=== PATIENT | female | born 1945 | race Caucasian/White ===

== ENCOUNTER → 2017-01-15 | Outpatient (CLI) | payer MEDICARE, MEDICAID ==
--- NOTE | 2017-01-15 16:39 | RADIOLOGY REPORT (SQ) ---
EXAM DESCRIPTION: SHOULDER RIGHT 2 OR MORE VIEWS COMPLETED DATE/TIME: 01/15/2017 3:04 pm REASON FOR STUDY: ANTERIOR DISLOCATION OF RIGHT HUMERUS, SEQUELA S43.014S ANTERIOR DISLOCATION OF R IGHT HUMERUS, SEQUELA COMPARISON: None. NUMBER OF VIEWS: Three views. TECHNIQUE: Internal rotation, external rotation, and Y view images acquired of the right shoulder. LIMITATIONS: None. FINDINGS: MINERALIZATION: Normal. BONES: No acute fracture or dislocation. No worrisome bone lesions. JOINTS: There is significant degenerative joint disease in the glenohumeral joint with marked narrowi ng of the joint space and subchondral sclerosis in the humeral head and glenoid and prominent margina l osteophyte inferiorly on humerus. VISUALIZED LUNGS AND RIBS: No pneumothorax. No rib fracture. SOFT TISSUES: No radiopaque foreign body. OTHER: No other significant finding. IMPRESSION: Glenohumeral degenerative joint disease. TECHNICAL DOCUMENTATION: JOB ID: [id number] [employer]- All Rights Reserved
== END ==
LOC: OD 14:28
PROVIDERS: ATTEND Internal Medicine
DX: S43.014S Anterior dislocation of right humerus, sequela (principal)

== ENCOUNTER 2019-01-14 12:31 | Observation (INO) | payer MEDICARE, MEDICAID ==
[~2019-01-14 12:31] MED LIST: PHENYLEPHRINE HCL INJ/PF 10 MG/1 ML SDV ONE; SUCCINYLCHOLINE CHLORIDE INJ 200 MG/10 ML VIAL ONE
--- NOTE | 2019-01-14 12:56 | ER Document Report ---
ED Medical Screen (RME) - General Stated Complaint: SPITTING UP BLOOD Time Seen by Provider: 01/14/19 12:50 Primary Care Provider: GISELLE CHRISTIANSON MD [Primary Care Provider] - Follow up as needed Information source: Patient Notes: Patient states that she was eating a hamburger and it felt as though it got stuck. Patient states she choked a little bit and coughed and since then has been spitting up blood. Patient feels as though the food is stuck in her throat. Patient unable to swallow her saliva. Patient denies any previous problems with food getting lodged in her throat. Patient denies taking any anticoagulants. Only significant history is seizures. I have greeted and performed a rapid initial assessment of this patient. A comprehensive ED assessment and evaluation of the patient, analysis of test results and completion of the medical decision making process will be conducted by additional ED providers. TRAVEL OUTSIDE OF THE [place] IN LAST 30 DAYS: No - Related Data Allergies/Adverse Reactions: No Known Drug Allergies Allergy (Verified 11/23/12 22:02) Past Medical History - Past Medical History Cardiac Medical History: Reports: Hx Hypertension Pulmonary Medical History: Denies: Hx Tuberculosis Neurological Medical History: Reports: Hx Seizures Endocrine Medical History: Reports: Hx Hypothyroidism. Denies: Hx Graves' Disease, Hx Hyperthyroidism Renal/ Medical History: Denies: Hx End Stage Renal Disease, Hx Kidney Stones, Hx Ovarian Cysts, Hx Peritoneal Dialysis, Hx Pelvic Inflammatory Disease Malignancy Medical History: Denies: Hx Breast Cancer, Hx Cervical Cancer, Hx Leukemia, Hx Ovarian Cancer Musculoskeltal Medical History: Reports Hx Arthritis, Denies Hx Systemic Lupus Erythematosus Skin Medical History: Reports Hx MRSA Infectious Medical History: Denies: Hx HIV Past Surgical History: Denies: Hx Pacemaker - Immunizations Hx Diphtheria, Pertussis, Tetanus Vaccination: No - unknown Physical Exam - General General appearance: Alert, Anxious In distress: Moderate Notes: Patient continually spitting up small amounts of blood to emesis bag, vital signs stable, Dr. Peñaloza to bedside for examination. Doctor's Discharge - Discharge Referrals: GISELLE CHRISTIANSON MD [Primary Care Provider] - Follow up as needed
[2019-01-14] MEDS ORDERED: TRANEXAMIC ACID INJ/PF 1,000 MG/10 ML SDV IV ONE (13:12)
[2019-01-14 13:30] LABS: INTERNATIONAL RATION (INR) 0.96; PROTHROMBIN TIME 12.8 SEC (11.4-15.4)
[2019-01-14 13:31] LABS: PARTIAL THROMBOPLASTIN TIME 25.8 SEC (23.5-35.8)
--- NOTE | 2019-01-14 13:43 | RADIOLOGY REPORT (SQ) ---
EXAM DESCRIPTION: CHEST SINGLE VIEW COMPLETED DATE/TIME: 01/14/2019 1:34 pm REASON FOR STUDY: vomiting blood, food bolus stuck COMPARISON: 06/17/2012 NUMBER OF VIEWS: One view. TECHNIQUE: Single frontal radiographic view of the chest acquired. LIMITATIONS: None. FINDINGS: LUNGS AND PLEURA: No opacities, masses or pneumothorax. No pleural effusion. MEDIASTINUM AND HILAR STRUCTURES: No masses. Contour normal. HEART AND VASCULAR STRUCTURES: Heart size is probably unchanged. Opacity in the right cardiophrenic angle is consistent with prominent cardiophrenic angle fat pad demonstrated on prior CTA chest. BONES: No acute findings. HARDWARE: None in the chest. OTHER: No other significant finding. IMPRESSION: NO SIGNIFICANT RADIOGRAPHIC FINDING IN THE CHEST. TECHNICAL DOCUMENTATION: JOB ID: [id number] [employer]- All Rights Reserved Reading location - IP/workstation name: [email or web address]
[2019-01-14 14:02] LABS: ABSOLUTE BASOPHILS # (AUTO) 0.1 10^3/uL (0.0-0.2); ABSOLUTE EOSINOPHILS # (AUTO) 0.1 10^3/uL (0.0-0.6); ABSOLUTE LYMPHOCYTES (AUTO) 1.2 10^3/uL (0.5-4.7); ABSOLUTE MONOCYTES (AUTO) 0.7 10^3/uL (0.1-1.4); ABSOLUTE NEUT (AUTO) 4.4 10^3/uL (1.7-8.2); BASOPHILS % (AUTO) 1.4 % (0-2); EOSINOPHILS % (AUTO) 1.7 % (0-6); HEMATOCRIT 36.2 % (36.0-47.0); HEMOGLOBIN 12.5 g/dL (12.0-15.5); LYMPHOCYTES % (AUTO) 18.5 % (13-45); MEAN CORPUSCULAR HEMOGLOBIN 31.4 pg (27.0-33.4); MEAN CORPUSCULAR HGB CONC 34.6 g/dL (32.0-36.0); MEAN CORPUSCULAR VOLUME 91 fl (80-97); PLATELET COUNT 261 10^3/uL (150-450); RED BLOOD COUNT 3.99 10^6/uL (3.72-5.28); RED CELL DISTRIBUTION WIDTH 13.4 % (11.5-14.0); SEGMENTED NEUTROPHILS % (AUTO) 67.4 % (42-78); TOTAL CELLS COUNTED % (AUTO) 100 %; WHITE BLOOD COUNT 6.5 10^3/uL (4.0-10.5)
--- NOTE | 2019-01-14 14:22 | ER Document Report ---
ED ENT - General Chief Complaint: Choked/Choking Stated Complaint: SPITTING UP BLOOD Time Seen by Provider: 01/14/19 12:50 Primary Care Provider: GISELLE CHRISTIANSON MD [Primary Care Provider] - Follow up as needed Mode of Arrival: Medic Information source: Patient TRAVEL OUTSIDE OF THE [place] IN LAST 30 DAYS: No - HPI Notes: Patient presents complaining of throat pain, vomiting blood, and a sensation of something being stuck in her throat. Patient states that she was at a [employer] eating a hamburger when she had the sensation of the hamburger being stuck in her throat. She states she then began to have some gagging and began to spit up blood. She states she feels slightly short of breath as well. She is also had trouble swallowing her own sputum. She has not been lightheaded or dizzy. No previous history. No history of bleeding disorders or liver trouble. He states she does not take any blood thinners. The symptoms have been moderate to severe. They have been constant. Nothing makes them better or worse. They have been located in her neck. There is no radiation of the symptoms. - Related Data Allergies/Adverse Reactions: No Known Drug Allergies Allergy (Verified 01/14/19 14:11) Past Medical History - General Information source: Patient - Social History Smoking Status: Never Smoker Frequency of alcohol use: None Drug Abuse: None Family History: Reviewed & Not Pertinent Patient has suicidal ideation: No Patient has homicidal ideation: No - Past Medical History Cardiac Medical History: Reports: Hx Hypertension Pulmonary Medical History: Denies: Hx Tuberculosis Neurological Medical History: Reports: Hx Seizures Endocrine Medical History: Reports: Hx Hypothyroidism. Denies: Hx Graves' Disea se, Hx Hyperthyroidism Renal/ Medical History: Denies: Hx End Stage Renal Disease, Hx Kidney Stones, Hx Ovarian Cysts, Hx Peritoneal Dialysis, Hx Pelvic Inflammatory Disease Malignancy Medical History: Denies: Hx Breast Cancer, Hx Cervical Cancer, Hx Leukemia, Hx Ovarian Cancer Musculoskeletal Medical History: Reports Hx Arthritis, Denies Hx Systemic Lupus Erythematosus Skin Medical History: Reports Hx MRSA Infectious Medical History: Denies: Hx HIV Past Surgical History: Denies: Hx Pacemaker - Immunizations Hx Diphtheria, Pertussis, Tetanus Vaccination: No - unknown Review of Systems - Review of Systems Constitutional: denies: Chills, Fever Cardiovascular: denies: Chest pain, Palpitations Respiratory: Cough, Short of breath Gastrointestinal: Nausea. denies: Abdominal pain -: Yes All other systems reviewed and negative Physical Exam - Vital signs Vitals: Resp BP 15 160/62 H 01/14/19 12:40 01/14/19 12:40 Interpretation: Hypertensive - General General appearance: Appears well, Alert In distress: Moderate - HEENT Head: Normocephalic, Atraumatic Eyes: Normal Pupils: PERRL Neck: Normal - Respiratory Respiratory status: No respiratory distress Chest status: Nontender Breath sounds: Decreased air movement - bilat Chest palpation: Normal - Cardiovascular Rhythm: Regular Heart sounds: Normal auscultation Murmur: No - Abdominal Inspection: Normal Distension: No distension Bowel sounds: Normal Tenderness: Nontender Organomegaly: No organomegaly - Back Back: Normal, Nontender - Extremities General upper extremity: Normal inspection, Nontender, Normal color, Normal ROM, Normal temperature General lower extremity: Normal inspection, Nontender, Normal color, Normal ROM, Normal temperature, Normal weight bearing. No: Philip's sign - Neurological Neuro grossly intact: Yes Cognition: Normal Orientation: AAOx4 Brent Coma Scale Eye Opening: Spontaneous Brent Coma Scale Verbal: Oriented [place] Coma Scale Motor: Obeys Commands Brent Coma Scale Total: 15 Speech: Normal Motor strength normal: LUE, RUE, LLE, RLE Sensory: Normal - Psychological Associated symptoms: Normal affect, Normal mood - Skin Skin Temperature: Warm Skin Moisture: Dry Skin Color: Normal Course - Re-evaluation Re-evalutation: 01/14/19 14:21 Patient arrives stating that she feels there is something stuck in her throat. She is actively spitting blood into a bag. She has approximately 4 to 500 mL of bloody sputum and an emesis bag that she has with her. She is not in any respiratory distress however. She is able to speak in complete sentences. She is nontoxic-appearing with relatively stable vitals. Patient was treated here with trans-anemic acid intravenously. She has also coughed up a large clot. After the trans-anemic acid and coughing up the clot she states she feels better. She feels like she can breathe better. The amount of bloody sputum that she is producing is significantly less. The surgeon has seen the patient here in the emergency department and will take the patient to the operating room. 01/14/19 14:24 - Vital Signs Vital signs: Temp Pulse Resp BP Pulse Ox 98.3 F 87 16 158/66 H 98 01/14/19 13:09 01/14/19 13:09 01/14/19 14:01 01/14/19 14:01 01/14/19 14:01 - Laboratory Result Diagrams: 01/14/19 13:45 01/14/19 12:50 - Diagnostic Test Radiology reviewed: Image reviewed, Reports reviewed - EKG Interpretation by Me EKG shows normal: Sinus rhythm Rate: Normal - 81 Rhythm: NSR Voltage: Decreased voltage Discharge - Discharge Clinical Impression: Upper GI hemorrhage Impacted esophageal foreign body Qualifiers: Encounter type: initial encounter Qualified Code(s): T18.108A - Unspecified foreign body in esophagus causing other injury, initial encounter Condition: Serious Disposition: ADMITTED INPATIENT Admitting Provider: Surgicalist - [facility] Admitted: OR Referrals: GISELLE CHRISTIANSON MD [Primary Care Provider] - Follow up as needed
[2019-01-14 14:31] LABS: ALBUMIN 4.3 g/dL (3.5-5.0); ALKALINE PHOSPHATASE 192 U/L (38-126); ANION GAP 10 (5-19); ASPARTATE AMINO TRANSFERASE 25 U/L (14-36); BILIRUBIN,DIRECT 0.2 mg/dL (0.0-0.4); BILIRUBIN,TOTAL 0.3 mg/dL (0.2-1.3); BLOOD UREA NITROGEN 17 mg/dL (7-20); CALCIUM 9.3 mg/dL (8.4-10.2); CARBON DIOXIDE 27 mmol/L (22-30); CHLORIDE 102 mmol/L (98-107); GLUCOSE 102 mg/dL (75-110); POTASSIUM 4.2 mmol/L (3.6-5.0); TOTAL PROTEIN 7.8 g/dL (6.3-8.2)
[2019-01-14] MEDS ORDERED: LIDOCAINE 2% INJ-PF (20 MG/ML) 10 ML AMPUL ONE (15:05)
[2019-01-14] MEDS ORDERED: MIDAZOLAM 2 MG/2 ML INJ ONE (15:05)
[2019-01-14] MEDS ORDERED: FENTANYL CITRATE INJ/PF 100 MCG/2 ML AMPUL ONE (15:05)
[2019-01-14] MEDS ORDERED: PROPOFOL INJ 200 MG/20 ML VIAL IV ONE (15:06)
[2019-01-14] MEDS ORDERED: EPINEPHRINE INJ 1 MG/10 ML DISP.SYRIN ONE (15:06)
[2019-01-14] MEDS ORDERED: FENTANYL CITRATE INJ/PF 100 MCG/2 ML AMPUL IV PRN ×3 (15:26)
[2019-01-14] MEDS ORDERED: MEPERIDINE HCL/PF INJ 25 MG/1 ML DISP.SYRIN IV PRN (15:26)
[2019-01-14] MEDS ORDERED: PROMETHAZINE HCL INJ 25 MG/1 ML VIAL IV PRN (15:26)
[2019-01-14] MEDS ORDERED: DIPHENHYDRAMINE HCL 50 MG/ML VIAL IV PRN (15:26)
[2019-01-14] MEDS ORDERED: ONDANSETRON HCL INJ/PF 4 MG/2 ML SDV IV PRN (15:26)
--- NOTE | 2019-01-14 15:46 | PDOC CONSULTATION ---
Consultation Consult Date: 01/14/19 Attending physician:: DANIEL LEMOS Provider Consulted: SALIMA GAGNON Consult reason:: Medical comanagement History of Present Illness Admission Date/PCP: 01/14/19 14:26 GISELLE CHRISTIANSON Patient complains of: Vomiting blood History of Present Illness: LAINE DEWITT is a 73 year old female with a history of hypothyroidism, seizure disorder, hypertension who presents to the hospital complaining of coughing up blood. Patient was eating a burger today went up piece of the burger got stuck in her throat. She states she was able to cough up some of it. However shortly after she started coughing up bloody sputum. EMS was subsequently called which brought patient to the hospital. Patient has been hemodynamically stable. In the emergency department patient was evaluated by surgery and was planned for th e OR for further evaluation. Consulted by surgery for evaluation of patient's chronic medical conditions for medical comanagement. During my examination patient completes of pain in the chest in the midsternal region which began after the food impaction. Patient denies any history of heart disease. States that she rarely gets heartburns. Patient admits to history of seizure per patient's daughter at bedside confirms that she has not had a seizure in over 3 years. She takes her phenytoin and Keppra diligently. Patient also takes losartan for hypertension which she took this morning. Patient denies any abdominal pain any dizziness trouble breathing fever chills swelling in the extremities. Past Medical History Medical History: Other Cardiac Medical History: Reports: Hypertension Pulmonary Medical History: Denies: Tuberculosis Neurological Medical History: Reports: Seizures Endocrine Medical History: Reports: Hypothyroidism Denies: Hyperthyroidism Renal/ Medical History: Denies: End Stage Renal Disease Malignancy Medical History: Denies: Breast Cancer, Cervical Cancer, Leukemia, Ovarian Cancer Musculoskeltal Medical History: Reports: Arthritis Hematology: Denies: Anemia, Hemophilia, Sickle Cell Disease Infectious Medical History: Denies: HIV Past Surgical History Past Surgical History: Reports: Tubal Ligation Denies: Pacemaker Social History Information Source: Patient, Relative Lives with: Alone Smoking Status: Never Smoker Frequency of Alcohol Use: None Hx Recreational Drug Use: No Hx Prescription Drug Abuse: No Family History Family History: Reviewed & Not Pertinent Parental Family History Reviewed: Yes Children Family History Reviewed: Yes Sibling(s) Family History Reviewed.: Yes Medication/Allergy Home Medications: Levetiracetam [Keppra] 1,000 mg PO Q12 01/14/19 Levothyroxine Sodium [Synthroid 0.088 mg Tablet] 0.088 mg PO Q6AM 01/14/19 Losartan Potassium [Cozaar 25 mg Tablet] 25 mg PO DAILY 01/14/19 Phenytoin Sodium Extended [Dilantin 100 mg Capsule.er] 100 mg PO TID 01/14/19 Allergies/Adverse Reactions: No Known Drug Allergies Allergy (Verified 01/14/19 14:11) Review of Systems Constitutional: ABSENT: headache(s), weakness Eyes: ABSENT: visual disturbances Ears: ABSENT: hearing changes Cardiovascular: PRESENT: chest pain. ABSENT: dyspnea on exertion, edema, palpitations Respiratory: PRESENT: cough, hemoptysis. ABSENT: dyspnea Gastrointestinal: PRESENT: as per HPI. ABSENT: abdominal pain Genitourinary: ABSENT: difficulty urinating, dysuria Musculoskeletal: ABSENT: joint swelling Integumentary: ABSENT: diaphoresis Neurological: ABSENT: confusion Psychiatric: ABSENT: hallucinations Hematologic/Lymphatic: ABSENT: easy bruising Physical Exam Vital Signs: Temp Pulse Resp BP Pulse Ox 98.3 F 87 16 158/66 H 98 01/14/19 14:28 01/14/19 13:09 01/14/19 14:01 01/14/19 14:01 01/14/19 14:01 Intake & Output 01/13/19 01/14/19 01/15/19 06:59 06:59 06:59 Weight 77.7 kg General appearance: PRESENT: no acute distress, cooperative Head exam: PRESENT: normocephalic Eye exam: PRESENT: EOMI Mouth exam: PRESENT: moist, other - Patient continuously with suctioning her mouth draining large amount of blood into the suction container Neck exam: ABSENT: JVD Respiratory exam: PRESENT: other - Mostly clear lung mims with right basilar inspiratory Crackles. ABSENT: chest wall tenderness Cardiovascular exam: PRESENT: RRR, +S1 Vascular exam: ABSENT: pallor GI/Abdominal exam: PRESENT: normal bowel sounds, soft. ABSENT: distended, firm, guarding, tenderness Rectal exam: PRESENT: deferred Extremities exam: ABSENT: calf tenderness Musculoskeletal exam: PRESENT: ambulatory Neurological exam: PRESENT: alert, oriented to person, oriented to place, oriented to time, oriented to situation Psychiatric exam: PRESENT: normal mood. ABSENT: agitated Results Laboratory Results: 01/14/19 13:45 01/14/19 13:45 01/14/19 01/14/19 01/14/19 12:50 12:50 12:50 WBC Cancelled RBC Cancelled Hgb Cancelled Hct Cancelled MCV Cancelled MCH Cancelled MCHC Cancelled RDW Cancelled Plt Count Cancelled Seg Neutrophils % Cancelled Sodium Cancelled Potassium Cancelled Chloride Cancelled Carbon Dioxide Cancelled Anion Gap Cancelled BUN Cancelled Creatinine Cancelled Est GFR ( Amer) Cancelled Est GFR (Non-Af Amer) Cancelled Glucose Cancelled Calcium Cancelled Total Bilirubin Cancelled AST Cancelled Alkaline Phosphatase Cancelled Total Protein Cancelled Albumin Cancelled Blood Type Cancelled Antibody Screen Cancelled 01/14/19 01/14/19 01/14/19 13:30 13:45 13:45 WBC 6.5 RBC 3.99 Hgb 12.5 Hct 36.2 MCV 91 MCH 31.4 MCHC 34.6 RDW 13.4 Plt Count 261 Seg Neutrophils % 67.4 Sodium 138.6 Potassium 4.2 Chloride 102 Carbon Dioxide 27 Anion Gap 10 BUN 17 Creatinine 0.56 Est GFR ( Amer) > 60 Est GFR (Non-Af Amer) Glucose 102 Calcium 9.3 Total Bilirubin 0.3 AST 25 Alkaline Phosphatase 192 H Total Protein 7.8 Albumin 4.3 Blood Type B POSITIVE Antibody Screen NEGATIVE Impressions: Chest X-Ray 01/14/19 12:53 IMPRESSION: NO SIGNIFICANT RADIOGRAPHIC FINDING IN THE CHEST. Assessment and Plan - Diagnosis (1) Impacted esophageal foreign body Qualifiers: Encounter type: initial encounter Qualified Code(s): T18.108A - Unspecified foreign body in esophagus causing other injury, initial encounter Is this a current diagnosis for this admission?: Yes Plan: Plan for OR by surgery. Will defer further management to surgery. (2) Upper GI hemorrhage Is this a current diagnosis for this admission?: Yes Plan: Likely secondary to food impaction. Await results from surgery. Type and screen & monitor H&H. (3) Hypertension Qualifiers: Hypertension type: essential hypertension Qualified Code(s): I10 - Essential (primary) hypertension Is this a current diagnosis for this admission?: Yes Plan: We will continue with losartan 25 mg daily at this time. Blood pressure slightly elevated but not too concerning which may also be secondary to her being in distress. Will monitor BP. (4) Hypothyroidism Is this a current diagnosis for this admission?: Yes Plan: Stable. Continue Synthroid 88 mcg daily. Outpatient follow-up with primary care provider. (5) Seizure disorder Is this a current diagnosis for this admission?: Yes Plan: Patient has chronic history of seizure disorder. Maintain patient on her home dose of Keppra and phenytoin. Patient has not had seizure in over 3 years according to her daughter. (6) Elevated alkaline phosphatase level Is this a current diagnosis for this admission?: Yes Plan: Mild elevation noted. Given normal liver enzymes it is likely secondary to some mild bone resorption given patient's age. Not concerned about this at this time. Outpatient follow-up for further monitoring - Time Time Spent with patient: 35 or more minutes
--- NOTE | 2019-01-14 19:00 | EKG REPORT ---
SEVERITY:- BORDERLINE ECG - SINUS RHYTHM LOW VOLTAGE THROUGHOUT : Confirmed by: Deepika Ramon MD 14-Jan-2019 18:59:11
--- NOTE | 2019-01-14 20:08 | PDOC H&P ---
History of Present Illness Admission Date/PCP: 01/14/19 14:26 GISELLE CHRISTIANSON Patient complains of: "Food is stuck in my throat". Vomiting blood. History of Present Illness: LAINE DEWITT is a 73 year old female who is a very poor historian. When asked regarding her medical problems, her answer is "I do not know". Patient is not accompanied by any of her family members. She was brought to the hospital via EMS. The patient reports that today she was eating a hamburger, when it became lodged in her esophagus. She then began vomiting blood. Per her report, she has vomited copious amounts of blood. She cannot swallow. She denies any significant chest pain, shortness of breath, fevers, chills, dizziness, orthostasis, blurry vision, difficulty hearing. Medical history was obtained from the available medical record. Past Medical History Cardiac Medical History: Reports: Hypertension Pulmonary Medical History: Denies: Tuberculosis Neurological Medical History: Reports: Seizures Endocrine Medical History: Reports: Hypothyroidism Denies: Hyperthyroidism Renal/ Medical History: Denies: End Stage Renal Disease Malignancy Medical History: Denies: Breast Cancer, Cervical Cancer, Leukemia, Ovarian Cancer Musculoskeltal Medical History: Reports: Arthritis Hematology: Denies: Anemia, Hemophilia, Sickle Cell Disease Infectious Medical History: Denies: HIV Past Surgical History Past Surgical History: Reports: Tubal Ligation Denies: Pacemaker Social History Lives with: Alone Smoking Status: Never Smoker Frequency of Alcohol Use: None Hx Recreational Drug Use: No Hx Prescription Drug Abuse: No - Advance Directive Resuscitation Status: Full Code Family History Family History: Reviewed & Not Pertinent Parental Family History Reviewed: Yes Children Family History Reviewed: Yes Sibling(s) Family History Reviewed.: Yes Medication/Allergy Home Medications: Levetiracetam [Keppra] 1,000 mg PO Q12 01/14/19 Levothyroxine Sodium [Synthroid 0.088 mg Tablet] 0.088 mg PO Q6AM 01/14/19 Losartan Potassium [Cozaar 25 mg Tablet] 25 mg PO DAILY 01/14/19 Phenytoin Sodium Extended [Dilantin 100 mg Capsule.er] 100 mg PO TID 01/14/19 Allergies/Adverse Reactions: No Known Drug Allergies Allergy (Verified 01/14/19 14:11) Review of Systems Constitutional: ABSENT: anorexia, chills, fatigue, fever(s), headache(s) Eyes: ABSENT: visual disturbances Ears: ABSENT: hearing changes Nose, Mouth, and Throat: ABSENT: sore throat Cardiovascular: ABSENT: chest pain Respiratory: ABSENT: cough Gastrointestinal: PRESENT: hematemesis, vomiting, other - Dysphagia. ABSENT: abdominal pain, bloating Genitourinary: ABSENT: dysuria Musculoskeletal: ABSENT: back pain Integumentary: ABSENT: pruritus, rash Neurological: ABSENT: confusion, convulsions, dizziness Psychiatric: ABSENT: anxiety, depression Endocrine: ABSENT: cold intolerance, heat intolerance Hematologic/Lymphatic: ABSENT: easy bleeding, easy bruising Physical Exam Vital Signs: Temp Pulse Resp BP Pulse Ox 98.1 F 106 H 14 151/50 H 97 01/14/19 17:26 01/14/19 17:26 01/14/19 17:26 01/14/19 17:26 01/14/19 17:26 Intake & Output 01/13/19 01/14/19 01/15/19 06:59 06:59 06:59 Intake Total 500 Output Total 200 Balance 300 Weight 77.7 kg General appearance: PRESENT: mild distress Head exam: PRESENT: atraumatic, normocephalic Eye exam: PRESENT: EOMI, PERRLA Mouth exam: PRESENT: neck supple Teeth exam: PRESENT: edentulous Neck exam: ABSENT: tenderness, thyromegaly, tracheal deviation, tracheostomy Respiratory exam: PRESENT: unlabored. ABSENT: chest wall tenderness, tachypnea, wheezes Cardiovascular exam: PRESENT: RRR Pulses: PRESENT: normal radial pulses Vascular exam: PRESENT: normal capillary refill GI/Abdominal exam: PRESENT: soft. ABSENT: distended, rebound, rigid, tenderness Rectal exam: PRESENT: deferred Extremities exam: ABSENT: clubbing Musculoskeletal exam: ABSENT: deformity Neurological exam: PRESENT: alert, awake, oriented to person, oriented to place, oriented to time, oriented to situation, CN II-XII grossly intact Psychiatric exam: PRESENT: anxious. ABSENT: agitated, depressed Focused psych exam: ABSENT: delusional Skin exam: ABSENT: cyanosis, erythema, jaundice Results Laboratory Results: 01/14/19 13:45 01/14/19 13:45 01/14/19 01/14/19 01/14/19 12:50 12:50 12:50 WBC Cancelled RBC Cancelled Hgb Cancelled Hct Cancelled MCV Cancelled MCH Cancelled MCHC Cancelled RDW Cancelled Plt Count Cancelled Seg Neutrophils % Cancelled Sodium Cancelled Potassium Cancelled Chloride Cancelled Carbon Dioxide Cancelled Anion Gap Cancelled BUN Cancelled Creatinine Cancelled Est GFR ( Amer) Cancelled Est GFR (Non-Af Amer) Cancelled Glucose Cancelled Calcium Cancelled Total Bilirubin Cancelled AST Cancelled Alkaline Phosphatase Cancelled Total Protein Cancelled Albumin Cancelled Blood Type Cancelled Antibody Screen Cancelled 01/14/19 01/14/19 01/14/19 13:30 13:45 13:45 WBC 6.5 RBC 3.99 Hgb 12.5 Hct 36.2 MCV 91 MCH 31.4 MCHC 34.6 RDW 13.4 Plt Count 261 Seg Neutrophils % 67.4 Sodium 138.6 Potassium 4.2 Chloride 102 Carbon Dioxide 27 Anion Gap 10 BUN 17 Creatinine 0.56 Est GFR ( Amer) > 60 Est GFR (Non-Af Amer) Glucose 102 Calcium 9.3 Total Bilirubin 0.3 AST 25 Alkaline Phosphatase 192 H Total Protein 7.8 Albumin 4.3 Blood Type B POSITIVE Antibody Screen NEGATIVE Impressions: Chest X-Ray 01/14/19 12:53 IMPRESSION: NO SIGNIFICANT RADIOGRAPHIC FINDING IN THE CHEST. Assessment & Plan - Diagnosis (1) Hematemesis Qualifiers: Nausea presence: without nausea Qualified Code(s): K92.0 - Hematemesis Is this a current diagnosis for this admission?: Yes (2) Impacted esophageal foreign body Qualifiers: Encounter type: initial encounter Qualified Code(s): T18.108A - Unspecified foreign body in esophagus causing other injury, initial encounter Is this a current diagnosis for this admission?: Yes - Plan Summary Plan Summary: This is a 73-year-old female with complaints of "something stuck in my throat". She also has large amounts of hematemesis. I recommended urgent evaluation in the operating room. Differential includes variceal bleeding versus esophageal mass, versus Kylah-Valdovinos tear, versus damage due to ingested foreign body. The patient's chest x-ray does not show sign of pneumothorax or pneumomediastinum. I have recommended general anesthesia and EGD. The patient is in agreement with the treatment plan. Risks/benefits discussed, informed consent obtained, and all questions answered.
--- NOTE | 2019-01-14 20:17 | Operative Report ---
Nonrecallable Operative Report DATE OF SURGERY: 01/14/19 PREOPERATIVE DIAGNOSIS: 1. Esophageal foreign body. 2. Hematemesis. POSTOPERATIVE DIAGNOSIS: 1. Esophageal foreign body, food bolus. 2. Large amount of hematoma in the esophagus. 3. Distal esophageal stricture at approximately 33 cm. 4. Kylah-Valdovinos tear at 30 cm, no active bleeding. OPERATION: 1. EGD. 2. Extraction of food bolus and hematoma. SURGEON: DANIEL LEMOS ANESTHESIA: GA TISSUE REMOVED OR ALTERED: Food bolus with hematoma COMPLICATIONS: None apparent ESTIMATED BLOOD LOSS: No active bleeding PROCEDURE: Procedure in detail: After informed consent was obtained, the patient was brought into the operating room and laid in the supine position, at a 30 degree angle. General endotracheal anesthesia was attained. The flexible endoscope was passed down the oropharynx, down the esophagus, to approximately 25 cm. A large hematoma was identified. It appeared to be completely intraluminal. With great care the hematoma was removed. This was performed using suction, grasping forceps, and a Headley net. After all of the hematoma and accompanying food bolus was removed, a distal esophageal stricture was identified. The stricture was found to be at approximately 33 cm from the teeth. The scope traversed the stricture easily, however the lumen was slightly narrowed. The scope was passed into the stomach. No active bleeding could be identified in the stomach. The scope was pulled back into the distal esophagus, where a Kylah-Valdovinos tear was identified. I believe this is the source of her hematoma. There was no active bleeding identified at the Kylah-Valdovinos tear. The tear appeared to involve mucosa only. The tear extended from approximately 30 cm to almost 33 cm. Once this was confirmed, and there was no other source of bleeding identified, the scope was removed up the remainder of the esophagus. The scope was pulled out the oropharynx, and the procedure was concluded. All sponge, instrument, and needle counts were correct x2. Condition: Stable.
[2019-01-14] MEDS ORDERED: (PENDING PHARMACY ID) (Levetiracetam [Keppra] 1,000 MG) PO SCH (22:00)
[2019-01-14] MEDS: LEVETIRACETAM 500 MG TABLET PO SCH (22:01)
[2019-01-14] MEDS: PHENYTOIN SODIUM EXTENDED 100 MG CAPSULE PO SCH (22:01)
[2019-01-14] MEDS ORDERED: INFLUENZA QUAD (6MOS+) 2019-20 VAC 0.5 ML SYR IM ONE (22:53)
[2019-01-15] MEDS: LEVOTHYROXINE SODIUM 0.088 MG TABLET PO SCH (05:22)
[2019-01-15] MEDS: PHENYTOIN SODIUM EXTENDED 100 MG CAPSULE PO SCH ×3 (05:22→21:38)
[2019-01-15 06:57] LABS: ABSOLUTE BASOPHILS # (AUTO) 0.1 10^3/uL (0.0-0.2); ABSOLUTE EOSINOPHILS # (AUTO) 0.1 10^3/uL (0.0-0.6); ABSOLUTE LYMPHOCYTES (AUTO) 1.3 10^3/uL (0.5-4.7); ABSOLUTE NEUT (AUTO) 5.4 10^3/uL (1.7-8.2); BASOPHILS % (AUTO) 0.7 % (0-2); EOSINOPHILS % (AUTO) 1.1 % (0-6); HEMATOCRIT 27.9 % (36.0-47.0); LYMPHOCYTES % (AUTO) 16.1 % (13-45); MEAN CORPUSCULAR HEMOGLOBIN 31.8 pg (27.0-33.4); MEAN CORPUSCULAR HGB CONC 35.4 g/dL (32.0-36.0); MEAN CORPUSCULAR VOLUME 90 fl (80-97); MONOCYTES % (AUTO) 12.4 % (3-13); PLATELET COUNT 201 10^3/uL (150-450); RED CELL DISTRIBUTION WIDTH 13.5 % (11.5-14.0); SEGMENTED NEUTROPHILS % (AUTO) 69.7 % (42-78); TOTAL CELLS COUNTED % (AUTO) 100 %; WHITE BLOOD COUNT 7.8 10^3/uL (4.0-10.5)
[2019-01-15 07:02] LABS: HEMOGLOBIN 9.9 g/dL (12.0-15.5)
[2019-01-15 07:10] LABS: ANION GAP 5 (5-19); BLOOD UREA NITROGEN 14 mg/dL (7-20); CALCIUM 8.3 mg/dL (8.4-10.2); CARBON DIOXIDE 28 mmol/L (22-30); CHLORIDE 101 mmol/L (98-107); GLUCOSE 84 mg/dL (75-110); POTASSIUM 3.9 mmol/L (3.6-5.0)
[2019-01-15] MEDS: LOSARTAN POTASSIUM 25 MG TABLET PO SCH (09:54)
[2019-01-15] MEDS: LEVETIRACETAM 500 MG TABLET PO SCH ×2 (09:57→21:38)
--- NOTE | 2019-01-15 10:07 | RADIOLOGY REPORT (SQ) ---
EXAM DESCRIPTION: CHEST SINGLE VIEW COMPLETED DATE/TIME: 01/15/2019 9:00 am REASON FOR STUDY: s/p egd, cough COMPARISON: 01/14/2019 EXAM PARAMETERS: NUMBER OF VIEWS: One view. TECHNIQUE: Single frontal radiographic view of the chest acquired. RADIATION DOSE: NA LIMITATIONS: None. FINDINGS: LUNGS AND PLEURA: Slight linear opacities in the bilateral lower lungs, may be on the bas is of atelectasis. No pneumothorax or pleural effusion. MEDIASTINUM AND HILAR STRUCTURES: No masses. Contour normal. HEART AND VASCULAR STRUCTURES: Stable appearance. Prominent cardiophrenic fat pad on the right, sta ble finding since CTA chest examination dated 06/12/2012. BONES: The osseous structures are stable in appearance. HARDWARE: None in the chest. OTHER: No other significant finding. IMPRESSION: 1. The prior examination dated 01/14/2019, slight linear parenchymal opacities in the l ower lung zones, may represent atelectasis. No evidence of pneumothorax. TECHNICAL DOCUMENTATION: JOB ID: [id number] [employer]- All Rights Reserved Reading location - IP/workstation name: [email or web address]
--- NOTE | 2019-01-15 10:40 | PDOC PROGRESS REPORT ---
Subjective Progress Note for:: 01/15/19 Subjective:: Patient is doing well today. Notes reviewed from surgery yesterday. Patient states that she has not had any recurrent episodes of bloody emesis. Patient denies any lightheadedness dizziness shortness of breath. States that chest pain has subsided significantly since the procedure. Reason For Visit: PRASAD-VALDOVINOS TEAR,ESOPHAGEAL FOREIGN BODY Physical Exam Vital Signs: Temp Pulse Resp BP Pulse Ox 99.2 F 98 17 119/49 L 94 01/14/19 23:53 01/14/19 23:53 01/14/19 23:53 01/14/19 23:53 01/14/19 23:53 Intake & Output 01/14/19 01/15/19 01/16/19 06:59 06:59 06:59 Intake Total 960 Output Total 200 Balance 760 Weight 77.7 kg General appearance: PRESENT: no acute distress, cooperative Head exam: PRESENT: atraumatic Eye exam: PRESENT: EOMI Mouth exam: PRESENT: moist, other - No current bleeding Throat exam: ABSENT: tonsillar exudate, tonsillogmegaly Neck exam: ABSENT: JVD, lymphadenopathy, tracheal deviation Respiratory exam: PRESENT: clear to auscultation judson, unlabored Cardiovascular exam: PRESENT: RRR, +S1 Vascular exam: ABSENT: pallor GI/Abdominal exam: PRESENT: normal bowel sounds, soft Rectal exam: PRESENT: deferred Gentrourinary exam: PRESENT: ecchymosis Extremities exam: ABSENT: joint swelling Musculoskeletal exam: PRESENT: ambulatory Neurological exam: PRESENT: alert, oriented to person, oriented to place, oriented to time, oriented to situation Psychiatric exam: PRESENT: normal mood Focused psych exam: ABSENT: internal stimuli Results Laboratory Results: 01/15/19 06:37 01/15/19 06:37 01/14/19 01/14/19 01/14/19 12:50 12:50 12:50 WBC Cancelled RBC Cancelled Hgb Cancelled Hct Cancelled MCV Cancelled MCH Cancelled MCHC Cancelled RDW Cancelled Plt Count Cancelled Seg Neutrophils % Cancelled Sodium Cancelled Potassium Cancelled Chloride Cancelled Carbon Dioxide Cancelled Anion Gap Cancelled BUN Cancelled Creatinine Cancelled Est GFR ( Amer) Cancelled Est GFR (Non-Af Amer) Cancelled Glucose Cancelled Calcium Cancelled Total Bilirubin Cancelled AST Cancelled Alkaline Phosphatase Cancelled Total Protein Cancelled Albumin Cancelled Blood Type Cancelled Antibody Screen Cancelled 01/14/19 01/14/19 01/14/19 13:30 13:45 13:45 WBC 6.5 RBC 3.99 Hgb 12.5 Hct 36.2 MCV 91 MCH 31.4 MCHC 34.6 RDW 13.4 Plt Count 261 Seg Neutrophils % 67.4 Sodium 138.6 Potassium 4.2 Chloride 102 Carbon Dioxide 27 Anion Gap 10 BUN 17 Creatinine 0.56 Est GFR ( Amer) > 60 Est GFR (Non-Af Amer) Glucose 102 Calcium 9.3 Total Bilirubin 0.3 AST 25 Alkaline Phosphatase 192 H Total Protein 7.8 Albumin 4.3 Blood Type B POSITIVE Antibody Screen NEGATIVE 01/15/19 01/15/19 06:37 06:37 WBC 7.8 RBC 3.10 L Hgb 9.9 L D Hct 27.9 L MCV 90 MCH 31.8 MCHC 35.4 RDW 13.5 Plt Count 201 Seg Neutrophils % 69.7 Sodium 134.4 L Potassium 3.9 Chloride 101 Carbon Dioxide 28 Anion Gap 5 BUN 14 Creatinine 0.48 L Est GFR ( Amer) > 60 Est GFR (Non-Af Amer) Glucose 84 Calcium 8.3 L Total Bilirubin AST Alkaline Phosphatase Total Protein Albumin Blood Type Antibody Screen Impressions: Chest X-Ray 01/15/19 06:00 IMPRESSION: 1. The prior examination dated 01/14/2019, slight linear parenchymal opacities in the lower lung zones, may represent atelectasis. No evidence of pneumothorax. Assessment and Plan - Diagnosis (1) Hypertension Qualifiers: Hypertension type: essential hypertension Qualified Code(s): I10 - Essential (primary) hypertension Is this a current diagnosis for this admission?: Yes Plan: Losartan not given this morning. Comment by staff noted that blood pressure was decreased. No vital signs noted from today in chart. If BP still decreased may be secondary to residual effects from anesthesia as well as acute blood loss. If blood pressure starts to go above 130 systolic, would recommend resuming losartan. (2) Hypothyroidism Is this a current diagnosis for this admission?: Yes Plan: Stable. Continue Synthroid 88 mcg daily. Outpatient follow-up with primary care provider. (3) Seizure disorder Is this a current diagnosis for this admission?: Yes Plan: Stable. Maintain on phenytoin and Keppra dose (4) Anemia due to blood loss, acute Is this a current diagnosis for this admission?: Yes Plan: Secondary to acute esophageal bleeding Prasad-Valdovinos tear. Patient is doing well and is not symptomatic. Transfuse if hemoglobin below 7 g/dL. (5) Prasad-Valdovinos tear Is this a current diagnosis for this admission?: Yes Plan: Bleeding resolved status post operative procedure. Will defer to surgery for further management (6) Impacted esophageal foreign body Qualifiers: Encounter type: initial encounter Qualified Code(s): T18.108A - Unspecified foreign body in esophagus causing other injury, initial encounter Is this a current diagnosis for this admission?: Yes Plan: Food impaction removed in the OR yesterday - Time Time Spent with patient: 15-24 minutes
--- NOTE | 2019-01-15 22:35 | PDOC PROGRESS REPORT ---
Subjective Progress Note for:: 01/15/19 Subjective:: No pains and tolerating diet well Reason For Visit: PRASAD-VALDOVINOS TEAR,ESOPHAGEAL FOREIGN BODY Physical Exam Vital Signs: Temp Pulse Resp BP Pulse Ox 98.2 F 95 16 141/60 H 98 01/15/19 20:48 01/15/19 20:48 01/15/19 20:48 01/15/19 20:48 01/15/19 20:48 Intake & Output 01/14/19 01/15/19 01/16/19 06:59 06:59 06:59 Intake Total 960 1277 Output Total 200 Balance 760 1277 Weight 77.7 kg Exam: No abdominal tenderness. No shortness of breath. Results Laboratory Results: 01/15/19 06:37 01/15/19 06:37 01/15/19 01/15/19 06:37 06:37 WBC 7.8 RBC 3.10 L Hgb 9.9 L D Hct 27.9 L MCV 90 MCH 31.8 MCHC 35.4 RDW 13.5 Plt Count 201 Seg Neutrophils % 69.7 Sodium 134.4 L Potassium 3.9 Chloride 101 Carbon Dioxide 28 Anion Gap 5 BUN 14 Creatinine 0.48 L Est GFR ( Amer) > 60 Glucose 84 Calcium 8.3 L Impressions: Chest X-Ray 01/15/19 06:00 IMPRESSION: 1. The prior examination dated 01/14/2019, slight linear parenchymal opacities in the lower lung zones, may represent atelectasis. No evidence of pneumothorax. Assessment & Plan - Diagnosis (1) Hypertension Qualifiers: Hypertension type: essential hypertension Qualified Code(s): I10 - Essential (primary) hypertension Is this a current diagnosis for this admission?: Yes (2) Impacted esophageal foreign body Qualifiers: Encounter type: initial encounter Qualified Code(s): T18.108A - Unspecified foreign body in esophagus causing other injury, initial encounter Is this a current diagnosis for this admission?: Yes (3) Prasad-Valdovinos tear Is this a current diagnosis for this admission?: Yes (4) Upper GI hemorrhage Is this a current diagnosis for this admission?: Yes - Time Time Spent with patient: 15-24 minutes - Inpatient Certification Medical Necessity: Need Close Monitoring Due to Risk of Patient Decompensation, Need for IV Antibiotics - Plan Summary Plan Summary: This is a 73-year-old female who had a food bolus impacted the esophagus and this was removed by Dr. Patino yesterday on EGD. Noted to have a Prasad-Valdovinos tear. Today she denies any more discomfort. She tolerated liquid diet. Chest x-ray showed no pneumomediastinum. Her white count is normal. Her white count is 9.9 from 12 yesterday. Plans: Repeat CBC in a.m. and if white count and hemoglobin remained stable possible discharge. Start regular diet.
[2019-01-16] MEDS: PHENYTOIN SODIUM EXTENDED 100 MG CAPSULE PO SCH (05:31)
[2019-01-16] MEDS: LEVOTHYROXINE SODIUM 0.088 MG TABLET PO SCH (05:31)
[2019-01-16 08:51] VITALS: BP 114/54
[2019-01-16] MEDS: LEVETIRACETAM 500 MG TABLET PO SCH (10:11)
[2019-01-16] MEDS: LOSARTAN POTASSIUM 25 MG TABLET PO SCH (10:13)
--- NOTE | 2019-01-16 11:15 | PDOC PROGRESS REPORT ---
Subjective Progress Note for:: 01/16/19 Subjective:: Patient is doing well today. Patient denies any recurrence of the upper GI bleed. Patient denies any lightheadedness chest pain dizziness. Reason For Visit: PRASAD-VALDOVINOS TEAR,ESOPHAGEAL FOREIGN BODY Physical Exam Vital Signs: Temp Pulse Resp BP Pulse Ox 97.6 F 84 16 114/54 L 97 01/16/19 09:38 01/16/19 09:38 01/16/19 09:38 01/16/19 09:38 01/16/19 09:38 Intake & Output 01/15/19 01/16/19 01/17/19 06:59 06:59 06:59 Intake Total 960 1277 Output Total 200 Balance 760 1277 Weight 77.7 kg 77.1 kg General appearance: PRESENT: no acute distress, cooperative Head exam: PRESENT: atraumatic Eye exam: PRESENT: conjunctiva pink Mouth exam: PRESENT: moist, other - No bleeding in the mouth Throat exam: ABSENT: tonsillogmegaly Neck exam: ABSENT: JVD, tracheal deviation Respiratory exam: PRESENT: clear to auscultation judosn. ABSENT: wheezes Cardiovascular exam: PRESENT: RRR, +S1. ABSENT: tachycardia GI/Abdominal exam: PRESENT: normal bowel sounds, soft. ABSENT: tenderness Rectal exam: PRESENT: deferred Extremities exam: ABSENT: calf tenderness Musculoskeletal exam: PRESENT: ambulatory Neurological exam: PRESENT: alert, oriented to person, oriented to place, oriented to time Psychiatric exam: PRESENT: normal mood Focused psych exam: ABSENT: internal stimuli Results Laboratory Results: 01/15/19 06:37 01/15/19 06:37 Impressions: Chest X-Ray 01/15/19 06:00 IMPRESSION: 1. The prior examination dated 01/14/2019, slight linear parenchymal opacities in the lower lung zones, may represent atelectasis. No evidence of pneumothorax. Assessment and Plan - Diagnosis (1) Hypertension Qualifiers: Hypertension type: essential hypertension Qualified Code(s): I10 - Essential (primary) hypertension Is this a current diagnosis for this admission?: Yes Plan: Blood pressure acceptable. Continue losartan (2) Hypothyroidism Is this a current diagnosis for this admission?: Yes Plan: Stable. Continue Synthroid 88 mcg daily. Outpatient follow-up with primary care provider. (3) Seizure disorder Is this a current diagnosis for this admission?: Yes Plan: Stable. Maintain on phenytoin and Keppra dose (4) Anemia due to blood loss, acute Is this a current diagnosis for this admission?: Yes Plan: Secondary to acute esophageal bleeding Prasad-Valdovinos tear. Patient is doing well and is not symptomatic. Transfuse if hemoglobin below 7 g/dL. (5) Prasad-Valdovinos tear Is this a current diagnosis for this admission?: Yes Plan: Defer to surgery for further management (6) Impacted esophageal foreign body Qualifiers: Encounter type: initial encounter Qualified Code(s): T18.108A - Unspecified foreign body in esophagus causing other injury, initial encounter Is this a current diagnosis for this admission?: Yes Plan: Food impaction removed in the OR Resolved - Plan Summary Summary: Will sign off on patient - Time Time Spent with patient: 15-24 minutes
== END 2019-01-16 11:09 | disposition home or self-care (01) ==
LOC: ER 12:31 → INTOOBSV 14:26 → EH 14:26 → 5 17:38
PROVIDERS: ATTEND Surgery
PROC: 0DC58ZZ Extirpation of Matter from Esophagus, Via Natural or Artificial Opening Endoscopic (ICD-10-PCS; 2019-01-14)
PROC: 3E02340 Introduction of Influenza Vaccine into Muscle, Percutaneous Approach (ICD-10-PCS; principal; 2019-01-16)
DX: T18.128A Food in esophagus causing other injury, initial encounter (principal); X58.XXXA Exposure to other specified factors, initial encounter; S27.812A Contusion of esophagus (thoracic part), initial encounter; K22.2 Esophageal obstruction; K22.6 Gastro-esophageal laceration-hemorrhage syndrome; D62 Acute posthemorrhagic anemia; G40.909 Epilepsy, unspecified, not intractable, without status epilepticus; I10 Essential (primary) hypertension; E03.9 Hypothyroidism, unspecified; R05 Cough; R06.02 Shortness of breath; R74.8 Abnormal levels of other serum enzymes; Z23 Encounter for immunization; Z60.2 Problems related to living alone; Z79.899 Other long term (current) drug therapy
CPT/HCPCS: 93005; 99284; 96374; 86900; 86901; 36415 ×2; 86850; 85025 ×2; 85610; 85730; 80048; 80053; 71045 ×2; 90686; 93010; 00731; 43247; G0378 ×4; J2250; J3010; J2370; A9270 ×9; J0330; J2704; J3490 ×2; 731; 90471; G0008; J0171